=== PATIENT | male | born 1960 | race Caucasian/White ===

== ENCOUNTER 2016-04-19 12:23 | Emergency (ER) | payer OTHER ==
[~2016-04-19] VITALS: Ht 182.8 cm; Wt 102.1 kg
[~2016-04-19 12:23] MED LIST: COUMADIN0.5 M1 PO; COUMADIN5 M2 PO; Coumadin5 MG PO; MOTRIN600 MG PO; MOTRIN800 MG PO; PROPAFENONE HC150 MG PO; XANAX0.5 MG PO
[2016-04-19] MEDS ORDERED: ATENOLOL25 MG PO (12:32)
[2016-04-19] MEDS ORDERED: PROTONIX TR40 M1 PO (12:33)
[2016-04-19] MEDS ORDERED: BACLOFEN20 M1 PO (12:33)
[2016-04-19 13:07] LABS: HEMATOCRIT 38.2 % (42.0-52.0); HEMOGLOBIN 13.3 g/dl (14.0-18.0); MEAN CELL VOLUME 95.3 fl (80.0-94.0); MEAN CORPUSCULAR HGB 33.2 pg (27.0-31.0); MEAN CORPUSCULAR HGB CONC 34.8 g/dl (33.0-37.0); MEAN PLATELET VOLUME 9.1 fl (9.6-12.3); NUCLEATED RED BLOOD CELL 0.2 % (0.0-0.0); PLATELET COUNT AUTOMATED 233 10*3/uL (130-400); RED BLOOD COUNT 4.01 10*6/uL (4.50-5.90); WHITE BLOOD COUNT 9.9 10*3/uL (4.8-10.8)
[2016-04-19 13:22] LABS: ALBUMIN 4.1 gm/dl (3.1-4.5); ALKALINE PHOSPHATASE 59 U/L (45-117); BILIRUBIN, TOTAL 0.8 mg/dl (0.2-1.0); BUN 11 mg/dl (7-24); CARBON DIOXIDE 27 mmol/L (21-32); CHLORIDE 104 mmol/L (98-107); EST GLOM FILT AFRICAN AMERICAN > 60 ml/min; GLUCOSE 100 mg/dL (65-99); POTASSIUM 3.4 mmol/L (3.5-5.1); SGOT/AST 39 IU/L (3-35); SGPT/ALT 35 U/L (12-78); SODIUM 140 mmol/L (136-145); TOTAL PROTEIN 7.1 gm/dL (6.4-8.2)
[2016-04-19 13:28] LABS: BASOPHIL # 0.1 10*3/uL (0-0.1); BASOPHILS 1 % (0-1); LYMPHOCYTE # 0.1 10*3/uL (1.3-4.4); MONOCYTE # 0.1 10*3/uL (0.1-1.0); NEUTROPHIL # 9.6 10*3/uL (2.3-7.9); NEUTROPHILS 97 % (47-73); PLATELET SUFFICIENCY NORMAL (NORMAL); TOTAL CELLS COUNTED 100 #CELLS
[2016-04-19 15:37] LABS: BILIRUBIN NEGATIVE (NEGATIVE); BLOOD NEGATIVE (NEGATIVE); CLARITY CLEAR (CLEAR); COLOR YELLOW (YELLOW); GLUCOSE NEGATIVE (NEGATIVE); KETONE 2+ (NEGATIVE); LEUKO ESTERASE NEGATIVE (NEGATIVE); NITRITE NEGATIVE (NEGATIVE); PROTEIN NEGATIVE (NEGATIVE); SPECIFIC GRAVITY 1.025 (1.005-1.030); UROBILINOGEN 0.2 E.U./dl (0.2-1.0)
[2016-04-19 15:44] LABS: BACTERIA TRACE; URINE REFLEX COMMENT NO (NO); WBC 0-2 wbc/hpf (0-5)
== END 2016-04-19 16:00 | disposition home or self-care (01) ==
LOC: ED 12:23
PROVIDERS: Emergency Medicine
DX: K52.9 Noninfective gastroenteritis and colitis, unspecified (principal); I48.91 Unspecified atrial fibrillation; Z79.01 Long term (current) use of anticoagulants

== ENCOUNTER → 2016-08-16 | Outpatient (CLI) | payer OTHER ==
[~2016-08-16] MED LIST changes: +ATENOLOL25 MG PO; +BACLOFEN20 M1 PO; +PROTONIX TR40 M1 PO
== END | disposition home or self-care (01) ==
LOC: US 10:55
DX: R10.10 Upper abdominal pain, unspecified (principal)

== ENCOUNTER 2016-11-09 16:34 | Emergency (ER) | payer OTHER ==
[2016-11-09] MEDS ORDERED: BACTRIM DS 8001 TA1 PO (16:44)
[2016-11-09] MEDS ORDERED: KEFLEX500 M1 PO (16:44)
== END 2016-11-09 16:50 | disposition home or self-care (01) ==
LOC: ED 16:34
DX: L03.115 Cellulitis of right lower limb (principal); I48.91 Unspecified atrial fibrillation; R03.0 Elevated blood-pressure reading, without diagnosis of hypertension; Z79.899 Other long term (current) drug therapy

== ENCOUNTER 2017-09-11 21:55 | Emergency (ER) | payer OTHER ==
[~2017-09-11] VITALS: Ht 180.3 cm; Wt 102.1 kg
[~2017-09-11 21:55] MED LIST changes: +BACTRIM DS 8001 TA1 PO; +KEFLEX500 M1 PO
[2017-09-11] MEDS ORDERED: ZYRTEC10 MG PO (23:31)
[2017-09-11] MEDS ORDERED: PREDNISONE20 M1 PO (23:31)
== END 2017-09-11 23:33 | disposition home or self-care (01) ==
LOC: ED 21:55
DX: T63.481A Toxic effect of venom of other arthropod, accidental (unintentional), initial encounter (principal); I48.91 Unspecified atrial fibrillation; Z79.899 Other long term (current) drug therapy; Y92.9 Unspecified place or not applicable

== ENCOUNTER 2019-10-09 19:06 | Observation (INO) | payer MEDICAID ==
[~2019-10-09] VITALS: Ht 180.3 cm; Wt 101.4 kg
[~2019-10-09 19:06] MED LIST changes: +PREDNISONE20 M1 PO; +ZYRTEC10 MG PO
[2019-10-09 19:20] VITALS: BP 143/85
[2019-10-09 19:33] LABS: BASO % 0.3 % (0.0-1.0); EOS # 0.1 10*3/uL (0.0-0.4); EOS % 0.9 % (1.0-4.0); HEMATOCRIT 38.7 % (42.0-52.0); LYMPH # 2.2 10*3/uL (1.3-4.4); LYMPH % 33.9 % (27.0-41.0); MEAN CELL VOLUME 93.9 fl (80.0-94.0); MEAN CORPUSCULAR HGB 32.3 pg (27.0-31.0); MEAN CORPUSCULAR HGB CONC 34.4 g/dl (33.0-37.0); MEAN PLATELET VOLUME 8.6 fl (9.6-12.3); MONO # 0.5 10*3/uL (0.1-1.0); NEUT # 3.7 10*3/uL (2.3-7.9); NEUT % 56.6 % (47.0-73.0); PLATELET COUNT AUTOMATED 255 10*3/uL (130-400); RED BLOOD COUNT 4.12 10*6/uL (4.50-5.90); RED CELL DISTRI WIDTH 12.5 % (0-14.5); WHITE BLOOD COUNT 6.5 10*3/uL (4.8-10.8)
[2019-10-09 19:51] LABS: ACT PARTIAL THROMBO TIME 24.8 SECONDS (20.0-32.1); ALBUMIN 4.1 gm/dl (3.1-4.5); ALKALINE PHOSPHATASE 61 U/L (45-117); BUN 7 mg/dl (7-24); CHLORIDE 108 mmol/L (98-107); CREATININE 0.87 mg/dL (0.70-1.30); INTERNATIONAL NORM RATIO 0.9 (2.0-3.5); POTASSIUM 3.6 mmol/L (3.5-5.1); SGOT/AST 25 IU/L (3-35); SGPT/ALT 33 U/L (12-78); SODIUM 139 mmol/L (136-145); TOTAL PROTEIN 7.2 gm/dL (6.4-8.2)
[2019-10-09 19:52] LABS: TROPONIN I < 0.015 ng/ml (<0.045)
[2019-10-09 20:00] VITALS: BP 122/74
[2019-10-09 20:23] VITALS: BP 114/66
[2019-10-09 21:02] VITALS: BP 101/58
[2019-10-09 22:48] VITALS: BP 114/72
[2019-10-09] MEDS ORDERED: TESTOSTERO200 MG/1 M IM (22:51)
[2019-10-09] MEDS ORDERED: LISINOPRIL20 MG PO (22:52)
[2019-10-09] MEDS ORDERED: CYCLOBENZAPRINE5 M3 PO (22:52)
[2019-10-09] MEDS ORDERED: DULOXETINE HCL30 MG PO (22:53)
[2019-10-09] MEDS ORDERED: MELOXICAM15 MG PO (22:53)
[2019-10-10 07:10] LABS: BASO % 0.2 % (0.0-1.0); EOS # 0.2 10*3/uL (0.0-0.4); EOS % 3.1 % (1.0-4.0); HEMATOCRIT 38.2 % (42.0-52.0); LYMPH # 1.7 10*3/uL (1.3-4.4); LYMPH % 33.7 % (27.0-41.0); MEAN CORPUSCULAR HGB 32.2 pg (27.0-31.0); MEAN CORPUSCULAR HGB CONC 33.2 g/dl (33.0-37.0); MONO # 0.4 10*3/uL (0.1-1.0); MONO % 8.3 % (3.0-9.0); NEUT # 2.8 10*3/uL (2.3-7.9); NEUT % 54.5 % (47.0-73.0); PLATELET COUNT AUTOMATED 236 10*3/uL (130-400); RED BLOOD COUNT 3.94 10*6/uL (4.50-5.90); RED CELL DISTRI WIDTH 12.6 % (0-14.5); WHITE BLOOD COUNT 5.2 10*3/uL (4.8-10.8)
[2019-10-10 07:19] LABS: BUN 10 mg/dl (7-24); CHLORIDE 108 mmol/L (98-107); CHOLESTEROL 169 mg/dL (<200); CREATININE 0.83 mg/dL (0.70-1.30); FREE T4 1.06 ng/dl (0.76-1.46); HDL CHOLESTEROL 53 mg/dl (40-60); LDL CHOLESTEROL 86 mg/dL (9-159); POTASSIUM 4.2 mmol/L (3.5-5.1); SODIUM 140 mmol/L (136-145); TRIGLYCERIDES 148 mg/dl (<150); VLDL CHOLESTEROL 30 mg/dL (6-40)
[2019-10-10 08:00] VITALS: BP 120/80
[2019-10-10 09:41] LABS: VITAMIN D, 25-HYDROXY 36.8 ng/mL (30-100)
[2019-10-10 16:00] VITALS: BP 118/74
== END 2019-10-10 17:07 | disposition home or self-care (01) ==
LOC: ED 19:06 → 5E 21:13 → EDHOLD 21:13 → 5E 21:48
PROVIDERS: Emergency Medicine; Internal Medicine; ADMIT Emergency Medicine
DX: R07.89 Other chest pain (principal); D53.9 Nutritional anemia, unspecified; E87.8 Other disorders of electrolyte and fluid balance, not elsewhere classified; A69.23 Arthritis due to Lyme disease; I10 Essential (primary) hypertension; Z23 Encounter for immunization

== ENCOUNTER 2020-04-25 09:45 | Emergency (ER) | payer MEDICAID ==
[~2020-04-25] VITALS: Ht 182.8 cm; Wt 95.3 kg
[~2020-04-25 09:45] MED LIST changes: +CYCLOBENZAPRINE5 M3 PO; +DULOXETINE HCL30 MG PO; +LISINOPRIL20 MG PO; +MELOXICAM15 MG PO; +TESTOSTERO200 MG/1 M IM
[2020-04-25 10:16] LABS: BASO % 0.3 % (0.0-1.0); EOS # 0.1 10*3/uL (0.0-0.4); EOS % 1.4 % (1.0-4.0); HEMATOCRIT 32.1 % (42.0-52.0); LYMPH # 1.2 10*3/uL (1.3-4.4); LYMPH % 17.8 % (27.0-41.0); MEAN CELL VOLUME 94.1 fl (80.0-94.0); MEAN CORPUSCULAR HGB 31.4 pg (27.0-31.0); MEAN CORPUSCULAR HGB CONC 33.3 g/dl (33.0-37.0); MONO # 0.7 10*3/uL (0.1-1.0); MONO % 10.1 % (3.0-9.0); NEUT # 4.8 10*3/uL (2.3-7.9); NEUT % 70.1 % (47.0-73.0); PLATELET COUNT AUTOMATED 301 10*3/uL (130-400); RED BLOOD COUNT 3.41 10*6/uL (4.50-5.90); RED CELL DISTRI WIDTH 11.9 % (0-14.5); WHITE BLOOD COUNT 6.9 10*3/uL (4.8-10.8)
[2020-04-25 10:28] LABS: INTERNATIONAL NORM RATIO 0.9 (2.0-3.5)
[2020-04-25 10:44] LABS: ALKALINE PHOSPHATASE 119 U/L (45-117); BUN 9 mg/dl (7-24); CHLORIDE 108 mmol/L (98-107); CREATININE 0.69 mg/dL (0.70-1.30); POTASSIUM 3.9 mmol/L (3.5-5.1); SGOT/AST 32 IU/L (3-35); SGPT/ALT 51 U/L (12-78); SODIUM 140 mmol/L (136-145); TOTAL PROTEIN 7.1 gm/dL (6.4-8.2)
[2020-04-25 10:47] LABS: TROPONIN I < 0.015 ng/ml (<0.045)
[2020-04-25] MEDS ORDERED: ZOFRAN4 MG PO (16:18)
== END 2020-04-25 17:05 | disposition home or self-care (01) ==
LOC: ED 09:45
PROVIDERS: Physician Assistant
DX: G89.18 Other acute postprocedural pain (principal); K59.00 Constipation, unspecified; J45.909 Unspecified asthma, uncomplicated; I48.91 Unspecified atrial fibrillation; K21.9 Gastro-esophageal reflux disease without esophagitis

== ENCOUNTER 2021-03-30 17:16 | Inpatient (IN) | payer MEDICAID ==
[~2021-03-30] VITALS: Ht 180.3 cm; Wt 102.1 kg
[~2021-03-30 17:16] MED LIST changes: +ZOFRAN4 MG PO
[2021-03-30 17:29] VITALS: BP 135/99
[2021-03-30 19:45] LABS: BASO % 0.3 % (0.0-1.0); EOS # 0.2 10*3/uL (0.0-0.4); EOS % 2.4 % (1.0-4.0); HEMATOCRIT 31.4 % (42.0-52.0); LYMPH # 1.5 10*3/uL (1.3-4.4); LYMPH % 20.3 % (27.0-41.0); MEAN CELL VOLUME 96.9 fl (80.0-94.0); MEAN CORPUSCULAR HGB 32.1 pg (27.0-31.0); MEAN CORPUSCULAR HGB CONC 33.1 g/dl (33.0-37.0); MEAN PLATELET VOLUME 9.1 fl (9.6-12.3); MONO # 0.8 10*3/uL (0.1-1.0); MONO % 10.4 % (3.0-9.0); NEUT % 66.2 % (47.0-73.0); PLATELET COUNT AUTOMATED 267 10*3/uL (130-400); RED BLOOD COUNT 3.24 10*6/uL (4.50-5.90); RED CELL DISTRI WIDTH 12.2 % (0-14.5); WHITE BLOOD COUNT 7.6 10*3/uL (4.8-10.8)
[2021-03-30 20:01] LABS: ALBUMIN 2.9 gm/dl (3.1-4.5); ALKALINE PHOSPHATASE 106 U/L (45-117); BUN 9 mg/dl (7-24); CHLORIDE 107 mmol/L (98-107); CREATININE 0.79 mg/dL (0.70-1.30); SGOT/AST 40 IU/L (3-35); SGPT/ALT 53 U/L (12-78); SODIUM 137 mmol/L (136-145); TOTAL PROTEIN 6.8 gm/dL (6.4-8.2)
[2021-03-30 21:52] VITALS: BP 129/81
[2021-03-30] MEDS ORDERED: GOOD NEIGHBOR L10 MG PO (23:13)
[2021-03-30] MEDS ORDERED: ATORVASTATIN CA40 M1 PO (23:14)
[2021-03-30] MEDS ORDERED: PRAMIPEXOLE0.125 MG PO (23:16)
[2021-03-30] MEDS ORDERED: ROPINIROLE HYDRO4 MG PO (23:17)
[2021-03-30] MEDS ORDERED: FLONASE ALLERG9.9 ML NAS (23:18)
[2021-03-30] MEDS ORDERED: 8 HOUR650 MG PO (23:20)
[2021-03-30] MEDS ORDERED: ECOTRIN325 M1 PO (23:21)
[2021-03-30] MEDS ORDERED: IBU800 M1 PO (23:21)
[2021-03-30] MEDS ORDERED: HYDROCODONE-AC1 EAC2 PO (23:23)
[2021-03-31] VITALS (7 sets, daily range): BP systolic 118–162; BP diastolic 77–95
[2021-03-31 06:18] LABS: ALBUMIN 2.5 gm/dl (3.1-4.5); BUN 9 mg/dl (7-24); CHLORIDE 108 mmol/L (98-107); POTASSIUM 3.7 mmol/L (3.5-5.1); SODIUM 139 mmol/L (136-145)
[2021-03-31 06:26] LABS: ALKALINE PHOSPHATASE 101 U/L (45-117); CHOLESTEROL 124 mg/dL (<200); CREATININE 0.67 mg/dL (0.70-1.30); FREE T4 1.15 ng/dl (0.76-1.46); LDL CHOLESTEROL 65 mg/dL (9-159); SGOT/AST 33 IU/L (3-35); SGPT/ALT 48 U/L (12-78); THYROID STIM HORMONE (HS) 0.725 uIU/ml (0.358-4.75); TOTAL PROTEIN 6.4 gm/dL (6.4-8.2); TRIGLYCERIDES 91 mg/dl (<150)
[2021-03-31 06:28] LABS: BASO % 0.3 % (0.0-1.0); EOS # 0.2 10*3/uL (0.0-0.4); EOS % 2.2 % (1.0-4.0); HEMATOCRIT 30.5 % (42.0-52.0); LYMPH % 14.3 % (27.0-41.0); MEAN CELL VOLUME 96.8 fl (80.0-94.0); MEAN CORPUSCULAR HGB 31.1 pg (27.0-31.0); MEAN CORPUSCULAR HGB CONC 32.1 g/dl (33.0-37.0); MEAN PLATELET VOLUME 9.3 fl (9.6-12.3); MONO # 0.6 10*3/uL (0.1-1.0); MONO % 8.1 % (3.0-9.0); NEUT # 5.1 10*3/uL (2.3-7.9); NEUT % 74.8 % (47.0-73.0); PLATELET COUNT AUTOMATED 273 10*3/uL (130-400); RED BLOOD COUNT 3.15 10*6/uL (4.50-5.90); RED CELL DISTRI WIDTH 12.3 % (0-14.5); WHITE BLOOD COUNT 6.8 10*3/uL (4.8-10.8)
[2021-03-31 08:31] LABS: VITAMIN D, 25-HYDROXY 43.5 ng/mL (30-100)
[2021-04-01 00:47] VITALS: BP 145/95
[2021-04-01 06:42] LABS: BASO % 0.3 % (0.0-1.0); EOS # 0.2 10*3/uL (0.0-0.4); EOS % 3.6 % (1.0-4.0); HEMATOCRIT 32.4 % (42.0-52.0); LYMPH # 1.1 10*3/uL (1.3-4.4); LYMPH % 18.1 % (27.0-41.0); MEAN CELL VOLUME 96.7 fl (80.0-94.0); MEAN CORPUSCULAR HGB 31.9 pg (27.0-31.0); MEAN PLATELET VOLUME 9.3 fl (9.6-12.3); MONO # 0.8 10*3/uL (0.1-1.0); MONO % 12.6 % (3.0-9.0); NEUT % 65.1 % (47.0-73.0); PLATELET COUNT AUTOMATED 291 10*3/uL (130-400); RED BLOOD COUNT 3.35 10*6/uL (4.50-5.90); RED CELL DISTRI WIDTH 12.4 % (0-14.5); WHITE BLOOD COUNT 6.1 10*3/uL (4.8-10.8)
[2021-04-01 06:48] LABS: ALBUMIN 2.6 gm/dl (3.1-4.5); ALKALINE PHOSPHATASE 98 U/L (45-117); BUN 7 mg/dl (7-24); CHLORIDE 106 mmol/L (98-107); CREATININE 0.68 mg/dL (0.70-1.30); POTASSIUM 3.7 mmol/L (3.5-5.1); SGOT/AST 30 IU/L (3-35); SGPT/ALT 46 U/L (12-78); SODIUM 138 mmol/L (136-145); TOTAL PROTEIN 6.5 gm/dL (6.4-8.2)
[2021-04-01 09:30] VITALS: BP 142/86
[2021-04-01 12:22] VITALS: BP 140/80
== END 2021-04-01 12:45 | disposition home or self-care (01) | DRG 603 ==
LOC: ED 17:16 → EDHOLD 22:07
PROVIDERS: Internal Medicine; Physician Assistant; ADMIT Family Medicine; ATTEND Family Medicine
DX: L03.115 Cellulitis of right lower limb (principal); E44.1 Mild protein-calorie malnutrition; D53.9 Nutritional anemia, unspecified; K21.9 Gastro-esophageal reflux disease without esophagitis; I48.91 Unspecified atrial fibrillation; Z96.651 Presence of right artificial knee joint; R73.9 Hyperglycemia, unspecified; I10 Essential (primary) hypertension; G25.81 Restless legs syndrome; G47.00 Insomnia, unspecified; E55.9 Vitamin D deficiency, unspecified; J30.2 Other seasonal allergic rhinitis; G89.18 Other acute postprocedural pain; M25.561 Pain in right knee; Z79.82 Long term (current) use of aspirin; Z79.1 Long term (current) use of non-steroidal anti-inflammatories (NSAID); Z79.899 Other long term (current) drug therapy

== ENCOUNTER 2023-09-18 18:01 | Emergency (ER) | payer MEDICAID ==
[~2023-09-18] VITALS: Ht 182.8 cm; Wt 102.1 kg
[~2023-09-18 18:01] MED LIST changes: +8 HOUR650 MG PO; +ATORVASTATIN CA40 M1 PO; +ECOTRIN325 M1 PO; +FLONASE ALLERG9.9 ML NAS; +GOOD NEIGHBOR L10 MG PO; +HYDROCODONE-AC1 EAC2 PO; +IBU800 M1 PO; +PRAMIPEXOLE0.125 MG PO; +ROPINIROLE HYDRO4 MG PO
[2023-09-18 19:06] LABS: BASO % 0.3 % (0.0-1.0); EOS # 0.1 10*3/uL (0.0-0.4); EOS % 1.6 % (1.0-4.0); HEMATOCRIT 36.7 % (42.0-52.0); LYMPH # 2.2 10*3/uL (1.3-4.4); LYMPH % 31.4 % (27.0-41.0); MEAN CELL VOLUME 94.1 fl (80.0-94.0); MEAN CORPUSCULAR HGB 32.3 pg (27.0-31.0); MEAN CORPUSCULAR HGB CONC 34.3 g/dl (33.0-37.0); MEAN PLATELET VOLUME 8.2 fl (9.6-12.3); MONO # 0.5 10*3/uL (0.1-1.0); MONO % 7.5 % (3.0-9.0); NEUT # 4.2 10*3/uL (2.3-7.9); NEUT % 58.6 % (47.0-73.0); PLATELET COUNT AUTOMATED 344 10*3/uL (130-400); RED CELL DISTRI WIDTH 12.4 % (0-14.5); WHITE BLOOD COUNT 7.1 10*3/uL (4.8-10.8)
[2023-09-18 19:25] LABS: BUN 8 mg/dl (9-23); CHLORIDE 104 mmol/L (98-107); POTASSIUM 3.7 mmol/L (3.4-5.1)
[2023-09-18] MEDS ORDERED: VIBRAMYCIN100 MG PO (19:48)
[2023-09-18] MEDS ORDERED: Doxycycline Hyclate 100 MG CAP PO ONE (19:50)
== END 2023-09-18 19:56 | disposition home or self-care (01) ==
LOC: ED 18:01
PROVIDERS: Nurse Practitioner Family
DX: L03.114 Cellulitis of left upper limb (principal); S40.862A Insect bite (nonvenomous) of left upper arm, initial encounter; I10 Essential (primary) hypertension; K21.9 Gastro-esophageal reflux disease without esophagitis; E78.5 Hyperlipidemia, unspecified; J45.909 Unspecified asthma, uncomplicated; I48.91 Unspecified atrial fibrillation; F32.A Depression, unspecified; Z98.890 Other specified postprocedural states; Z96.651 Presence of right artificial knee joint; W57.XXXA Bitten or stung by nonvenomous insect and other nonvenomous arthropods, initial encounter; Y93.89 Activity, other specified; Y92.89 Other specified places as the place of occurrence of the external cause; Y99.8 Other external cause status

== ENCOUNTER 2024-05-22 09:21 | Emergency (ER) | payer MEDICAID ==
[~2024-05-22] VITALS: Ht 177.8 cm; Wt 99.8 kg
[~2024-05-22 09:21] MED LIST changes: +VIBRAMYCIN100 MG PO
[2024-05-22] MEDS ORDERED: Acetaminophen/Oxycodone 5 MG/325 MG TABLET PO ONE (10:10)
[2024-05-22] MEDS ORDERED: CLINDAMYCIN HC300 MG PO (11:58)
[2024-05-22] MEDS ORDERED: MELOXICAM15 MG PO (11:58)
== END 2024-05-22 12:49 | disposition home or self-care (01) ==
LOC: ED 09:21
DX: S43.402A Unspecified sprain of left shoulder joint, initial encounter (principal); S09.8XXA Other specified injuries of head, initial encounter; R68.84 Jaw pain; I10 Essential (primary) hypertension; M54.2 Cervicalgia; R22.0 Localized swelling, mass and lump, head; R42 Dizziness and giddiness; E78.5 Hyperlipidemia, unspecified; J45.909 Unspecified asthma, uncomplicated; I48.91 Unspecified atrial fibrillation; K21.9 Gastro-esophageal reflux disease without esophagitis; Z98.890 Other specified postprocedural states; Z96.651 Presence of right artificial knee joint; V89.2XXA Person injured in unspecified motor-vehicle accident, traffic, initial encounter; Y93.89 Activity, other specified; Y92.410 Unspecified street and highway as the place of occurrence of the external cause; Y99.8 Other external cause status

== ENCOUNTER 2025-04-07 12:14 | Emergency (ER) | payer MEDICAID ==
[~2025-04-07] VITALS: Ht 180.3 cm; Wt 96.2 kg
[~2025-04-07 12:14] MED LIST changes: +CLINDAMYCIN HC300 MG PO
[2025-04-07 12:56] LABS: BILIRUBIN Negative (Negative); BLOOD Negative (Negative); CLARITY Clear (Clear); COLOR Yellow (Yellow); KETONE Negative (Negative); LEUKO ESTERASE Negative (Negative); NITRITE Negative (Negative); PH 6.0 (4.5-8.0); SPECIFIC GRAVITY 1.015 (1.001-1.030); UROBILINOGEN 0.2 E.U./dl (0.0-1.0)
[2025-04-07 12:58] LABS: BASO # 0.0 10*3/uL (0.0-0.1); BASO % 0.3 % (0.0-1.0); EOS # 0.1 10*3/uL (0.0-0.4); EOS % 1.7 % (1.0-4.0); MEAN CELL VOLUME 95.6 fl (80.0-94.0); MEAN CORPUSCULAR HGB 32.8 pg (27.0-31.0); MEAN PLATELET VOLUME 8.5 fl (9.6-12.3); MONO # 0.6 10*3/uL (0.1-1.0); MONO % 7.3 % (3.0-9.0); NEUT # 5.5 10*3/uL (2.3-7.9); NEUT % 71.1 % (47.0-73.0); NUCLEATED RED BLOOD CELL 0.0 % (0.0-0.0); NUCLEATED RED BLOOD CELL 0.0 10*3/uL (0.0-0.0); PLATELET COUNT AUTOMATED 281 10*3/uL (130-400); RED CELL DISTRI WIDTH 12.0 % (0-14.5)
[2025-04-07 13:14] LABS: EPITHELIAL CELLS 0-2; MUCOUS TRACE; WBC 0-2 wbc/hpf (0-5)
[2025-04-07 13:17] LABS: BUN 11 mg/dl (9-23)
[2025-04-07] MEDS ORDERED: PREDNISONE50 MG PO (14:02)
[2025-04-07] MEDS ORDERED: Acetaminophen/Hydrocodone 5 MG/325 MG TABLET PO ONE (14:05)
== END 2025-04-07 14:19 | disposition home or self-care (01) ==
LOC: ED 12:14
PROVIDERS: Nurse Practitioner Family
DX: S39.012A Strain of muscle, fascia and tendon of lower back, initial encounter (principal); R10.9 Unspecified abdominal pain; J45.909 Unspecified asthma, uncomplicated; I48.91 Unspecified atrial fibrillation; K21.9 Gastro-esophageal reflux disease without esophagitis; Z98.890 Other specified postprocedural states; Z96.651 Presence of right artificial knee joint; X58.XXXA Exposure to other specified factors, initial encounter; Y93.89 Activity, other specified; Y92.89 Other specified places as the place of occurrence of the external cause; Y99.8 Other external cause status